=== PATIENT | male | born 2000 | race Caucasian/White ===

== ENCOUNTER 2024-09-25 16:53 | Emergency (ER) | payer BC, SELFPAY ==
--- NOTE | ~2024-09-25 | XR_ITS ---
HISTORY: HOOKED BY FISH HOOK(FISH HOOK CUT OFF) COMPARISON: None TECHNIQUE: 3 views of the right hand were performed. FINDINGS: No acute fracture is identified. The joint spaces are preserved. The carpal arcs are intact. Bone mineralization is unremarkable. Moderate soft tissue swelling projecting over the thenar eminence. 9.8 mm radiopaque foreign body deep to the skin projecting over the thenar eminence . IMPRESSION: No acute fracture or dislocation within the right hand, as detailed above. Subcentimeter radiopaque foreign body projecting over the thenar eminence, consistent with the distal margin of a fish hook Reviewed, dictated and finalized at location A. IMPRESSION: No acute fracture or dislocation within the right hand, as detailed above. Subcentimeter radiopaque foreign body projecting over the thenar eminence, cons istent with the distal margin of a fish hook
--- OUTSIDE RECORDS SUMMARY | 2024-09-25 16:55 | XMS_ITS | Clinical Summary ---
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[employer] Equipment Name Role Phone Mireya Kemp MD Primary Care Provider Allergies No known active allergies Medications No known medications Active Problems No known active problems Encounters Date Type Department Care Team Description 07/14/2024 6:15 PM CDT Office Visit [facility] [place] [address] [place] [address] Brigitte Wheat, LAURA Sports physical (Primary Dx) from Last 3 Months Social History Tobacco Use Types Packs/Day Years Used Date Smoking Tobacco: Never Smokeless Tobacco: Never Tobacco Cessation:Counseling Given: Not Answered Sex and Gender Information Value Date Recorded Sex Assigned at Not on file Legal Sex Male 5:20 PM CDT Gender Identity Not on file Sexual Orientation Not on file Obstetrics History Last Filed Vital Signs Vital Sign Reading Time Taken Comments Blood Pressure 110/68 07/14/2024 6:13 PM CDT Pulse 87 07/14/2024 6:13 PM CDT Temperature 36.6 C (97.8 F) 07/14/2024 6:13 PM CDT Respiratory Rate 16 07/14/2024 6:13 PM CDT Oxygen Saturation 97% 07/14/2024 6:13 PM CDT Inhaled Oxygen Concentration - - Weight 87.5 kg (193 lb) 07/14/2024 6:13 PM CDT Height 174 cm (5' 8.5) 07/14/2024 6:13 PM CDT Body Mass Index 28.92 07/14/2024 6:13 PM CDT Plan of Treatment Health Maintenance Due Date Last Done Comments Depression Screening 2002 Hepatitis C Screening 2002 DTaP/Tdap/Td Vaccine (1 - Tdap) 2013 Varicella Vaccines (1 of 2 - 13+ 2-dose series) 10/22/2015 HPV Vaccines (1 - Male 3-dos e series) 2017 Meningococcal B Vaccine (1 o f 2 - Standard) 2018 Hepatitis B Screening 2020 Regular Well Visit/Exam 18-64 2020 Influenza Vaccine (#1) 2024 Meningococcal Vaccine Aged Out No selvin rosi eligible based on patient's age to complete this topic Pneumococcal vaccine <65 Aged Out No longer eligible based on patient's age to complete this topic Care Teams Rental Clerk Tool [employer] Equipment Relationship Specialty Start Date End Date Mireya Kemp MD PCP - General Family Medicine 07/31/22
[2024-09-25 17:06] VITALS: BP 140/70; PULSE 75; RESP 16; TEMP 35.7; O2SAT 100
--- NOTE | 2024-09-25 17:13 | ED_ITS ---
HPI - General Adult General Chief complaint: Extremity Injury, Upper Stated complaint: Fish Hook In Right Hand Source: patient Mode of arrival: ambulatory Limitations: no limitations History of Present Illness HPI narrative: Patient presents for evaluation of retained flu shot in the right thumb. He was fishing at approximately 3:30 p.m. today when the hook went into his right thumb. Was a 3 prong hook. His father cut two of the prongs out and the third migrated under the skin. He describes the discomfort as aching and sore, rated 1/10 in severity. No loss of range of motion. He is right-hand dominant. Date of last tetanus unknown. He is not diabetic. Related Data Allergies Allergy/AdvReac Type Severity Reaction Status Date / Time No Known Allergies Allergy Verified 09/25/24 17:13 Review of Systems Review of Systems: CONSTITUTIONAL: Denies fever, chills, or sweats. EYES: Denies visual changes, redness, or discharge. ENT: Denies rhinorrhea, congestion, sore throat, or otalgia. CARDIOVASCULAR: Denies chest pain, palpitations, or edema. RESPIRATORY: Denies cough or dyspnea. GASTROINTESTINAL: Denies abdominal pain, nausea, vomiting, or diarrhea. GENITOURINARY: Denies dysuria or hematuria. SKIN: Reports fishhook beneath the skin of the right thumb MUSCULOSKELETAL: Reports pain in the right thumb. Denies other musculoskeletal pain NEUROLOGIC: Denies headache, numbness, dizziness, or weakness. PSYCHIATRIC: Denies anxiety or depression. [facility] Past Medical History Medical History (Updated 09/25/24 @ 18:10 by Darien Degroot, PAO, ) No pertinent past medical history Surgical History Surgical History History of dental surgery Family History Family History Mother No problems noted. Social History Social History Living arrangements: with family Gender identity (if verbalized by the patient): Male Spiritual care concerns: No Exam Narrative: GENERAL: Well-appearing, well-nourished, and in no acute distress. HEAD: Normocephalic, atraumatic. EYES: PERRLA and EOMI. ENT: Nares clear, no rhinorrhea or epistaxis. Mucous membranes moist. Oropharynx without tonsillar hypertrophy exudate or other lesions. Bilateral TMs pearly silva nonbulging NECK: Supple. No adenopathy or masses. No carotid bruits or JVD CHEST: Clear to auscultation. No respiratory distress. No wheezes rales or rhonchi HEART: Regular rate and rhythm. No murmur heard. Normal peripheral pulses. ABDOMEN: Soft, nontender, nondistended, normal active bowel sounds. EXTREMITIES: Normal range of motion. No edema. There is tenderness in the thenar space of the right hand SKIN: Warm, dry, no rash. There is a palpable foreign body in the thenar space of the right hand NEURO: No focal deficits. Alert and oriented x3. PSYCH: Normal mood and affect. Course Course Emergency Course: This is a 23-year-old male who presented for evaluation of foreign body in the right hand. Patient was updated on tetanus. [place] was removed manually, pushing through and through. Pt tolerated well. Will discharge with Levaquin and cephalexin. Follow-up with primary provider. Go to the ER for worsening symptoms. Patient in agreement with plan of care. Level of Care: Express Care Visit Vital Signs Vital signs: Vital Signs Temperature 35.7 C L 09/25/24 17:06 Pulse Rate 75 09/25/24 17:06 Respiratory Rate 16 09/25/24 17:06 Blood Pressure 140/70 09/25/24 17:06 Pulse Oximetry 100 09/25/24 17:06 Oxygen Delivery Room Air 09/25/24 17:06 Temperature 35.7 C L 09/25/24 17:06 Pulse Rate 75 09/25/24 17:06 Respiratory Rate 16 09/25/24 17:06 Blood Pressure 140/70 09/25/24 17:06 Pulse Oximetry 100 09/25/24 17:06 Oxygen Delivery Room Air 09/25/24 17:06 Procedures Foreign Body Removal Foreign Body #1: Foreign Body Removal Date: 09/25/24 Foreign Body Removal Time: 18:15 Time Out Performed: yes Site: right Description of foreign body: fish hook Technique: removal with forceps Confirmed by:: radiograph Complications: none Post-procedure exam: awake, alert, normal BP, normal HR and normal O2 sat Neurovascular: normal capillary fill, distal motor function normal and no change from pre-procedure Foreign Body Removal Narrative: Digital block performed of right thumb. Betadine used to cleanse the affected area. 2ml lidocaine administered as block. Medical Decision Making Vital Signs Vital Signs: Vital Signs Temperature 35.7 C L 09/25/24 17:06 Pulse Rate 75 09/25/24 17:06 Respiratory Rate 16 09/25/24 17:06 Blood Pressure 140/70 09/25/24 17:06 Pulse Oximetry 100 09/25/24 17:06 Oxygen Delivery Room Air 09/25/24 17:06 Temperature 35.7 C L 09/25/24 17:06 Pulse Rate 75 09/25/24 17:06 Respiratory Rate 16 09/25/24 17:06 Blood Pressure 140/70 09/25/24 17:06 Pulse Oximetry 100 09/25/24 17:06 Oxygen Delivery Room Air 09/25/24 17:06 Imaging Data Radiologist's impression: HISTORY: HOOKED BY FISH HOOK(FISH HOOK CUT OFF) COMPARISON: None TECHNIQUE: 3 views of the right hand were performed. FINDINGS: No acute fracture is identified. The joint spaces are preserved. The carpal arcs are intact. Bone mineralization is unremarkable. Moderate soft tissue swelling projecting over the thenar eminence. 9.8 mm radiopaque foreign body deep to the skin projecting over the thenar eminence . IMPRESSION: No acute fracture or dislocation within the right hand, as detailed above. Subcentimeter radiopaque foreign body projecting over the thenar eminence, consistent with the distal margin of a fish hook Discharge Plan Discharge Clinical Impression: Fish hook injury of right hand Patient Disposition: Home Condition: Stable Instructions: Antibiotic Form, Soft Tissue Foreign Body (ED), Puncture Wound (DC) Patient Language: Sudanese Prescriptions: New cephalexin 500 mg capsule 500 mg PO Q6H 10 Days Qty: 40 0RF levofloxacin 750 mg tablet 750 mg PO DAILY 10 Days Qty: 10 0RF Follow-up/Referrals: Chris Nieto MD [Physician] - Time of Disposition: 18:12
[2024-09-25] MEDS: TETANUS,DIPHTHERIA,AC PERTUSSIS ADULT (0.5 ML) BOOSTRIX IM (17:20)
== END 2024-09-25 18:15 | disposition home or self-care (01) ==
PROVIDERS: Emergency Provider Nurse Practitioner
DX: S61.041A Puncture wound with foreign body of right thumb without damage to nail, initial encounter (principal); W45.8XXA Other foreign body or object entering through skin, initial encounter; Z23 Encounter for immunization
CPT/HCPCS: 73130; 90471; 90715; 99213; G0463; J2003